=== PATIENT | female | born 1960 | race Caucasian/White ===

== ENCOUNTER 2024-06-16 12:07 | Outpatient (REF) | payer BC, SELFPAY ==
--- OUTSIDE RECORDS SUMMARY | 2024-06-16 12:12 | XMS_ITS | Data Portability ---
Author Organization [facility] Andrea Carroll __[facility] Address [address] [place] [id number] Care Team Providers Care Sheet Folder Name Role Phone ASHOK RUIZ Primary Care Provider ) [phone] Assessment No assessment recorded. Plan of Treatment Reminders Order Date Submit Date Provider Last Modified By Organization Details Last Modified Time Details Appointments None recorded. Lab T4, free, serum 2021 022 [email or web address] [facility] (Main [facility]), [address], [place], [address], 2 09:32:10 T3, reverse, serum 2021 022 JENNIFER [facility] (Main [facility] Location), [address], [address], [place], [address], 2 14:57:52 TSH, serum or plasma 2022 023 JENNIFER [facility] ([facility] Location), [address], [place], [address], 3 00:49:31 T4, free, serum 2022 023 JENNIFER [facility] (Main [facility] Location), [address], [address], [place], [address], 3 00:49:32 T3, free, serum or plasma 2022 023 JENNIFER [facility] (Main Lab Location), [address], [place], [address], 3 00:49:29 vitamin D, 25-hydroxy, total, serum 2022 023 JENNIFER [facility] (Main Lab Location), [address], [address], [place], [address], 3 00:45:14 T3, reverse, serum 2022 023 JENNIFER [facility] (Main [facility] Location), [address], [place], [address], 3 15:28:31 vitamin D, 25-hydroxy, total, serum 2023 024 [facility]ER [facility] [address], [place], [address], 4 18:57:05 Referral None recorded. Procedures None recorded. Surgeries None recorded. Imaging None recorded. Medication Orders montelukast 10 mg tablet 2021 022 JENNIFER [id number], [address] [place], [address], 2 14:11:42 levothyroxi ne 125 mcg tablet 2021 022 JENNIFER [id number], [address] [place], [place] [address], [address], 2 11:58:46 levothyroxi ne 137 mcg tablet 2022 023 JENNIFER [id number], [address] [place], [address], 3 11:42:11 levothyroxi ne 125 mcg tablet 2022 023 JENNIFER [id number], [address] [place], [place] [address], [address], 11:44:56 Patient TargetsNo targets recorded. Patient Instructions Encounter Date Encounter Id Patient Instructions Last Modified By Organization Details Last Modified Time 01/21/2022 [id number] learning about healthy weight jgewin Not available 01/21/2022 19:08:52 05/19/2022 [id number] learning about healthy weight jgewin Not available 05/19/2022 18:59:01 12/21/2022 [id number] learning about healthy weight jgewin Not available 12/21/2022 13:19:46 eating healthy foods: care instructions jgewin Not available 12/21/2022 13:19:46 body mass index: care instructions jgewin Not available 12/21/2022 13:19:46 01/14/2024 [id number] learning about healthy weight jgewin Not available 01/14/2024 13:09:06 body mass index: care instructions jgewin Not available 01/14/2024 13:09:06 eating healthy foods: care instructions jgewin Not available 01/14/2024 13:09:06 Reason for Referral None Reported. Results Created Date Observation Date Name Description Value Unit Range Abnormal Flag Note LastModifiedBy Organization Detail LastModifiedTime 05/14/20 22 05/14/2022 COMPL ETE BLOOD COUNT W/AUT O DIFFE RENTI AL WBC 7.1 x10(3 )/mcL 4.0-10 .0 Not Available [facility] (Main [facility]) [address], [place], [address], 05/14/2022 17:04:36 05/14/20 22 05/14/2022 COMPL ETE BLOOD COUNT W/AUT O DIFFE RENTI AL RBC cnt 4.90 x10(6 )/mcL 3.80-5 .20 Not Available [facility] (Main Lab Location) [address], [place], [address], 05/14/2022 17:04:36 05/14/20 22 05/14/2022 COMPL ETE BLOOD COUNT W/AUT O DIFFE RENTI AL HGB 14.6 gm/dL 11.3-1 5.2 Not Available [facility] (Main Lab Location) [address], [place], [address], 05/14/2022 17:04:36 05/14/20 22 05/14/2022 COMPL ETE BLOOD COUNT W/AUT O DIFFE RENTI AL HCT 44.8 % 33.0-4 5.0 Not Available [facility] (Main Lab Location) [address], [place], [address], 05/14/2022 17:04:36 05/14/20 22 05/14/2022 COMPL ETE BLOOD COUNT W/AUT O DIFFE RENTI AL MCV 91.4 fL 80.0-9 6.0 Not Available [facility] (Main Lab Location) [address], [place], [address], 05/14/2022 17:04:36 05/14/20 22 05/14/2022 COMPL ETE BLOOD COUNT W/AUT O DIFFE RENTI AL MCH 29.8 pg 27.0-3 3.0 Not Available [facility] (Main Lab Location) [address], [place], [address], 05/14/2022 17:04:36 05/14/20 22 05/14/2022 COMPL ETE BLOOD COUNT W/AUT O DIFFE RENTI AL MCHC 32.6 gm/dL 32.0-3 6.0 Not Available [facility] (Main Lab Location) [address], [place], [address], 05/14/2022 17:04:36 05/14/20 22 05/14/2022 COMPL ETE BLOOD COUNT W/AUT O DIFFE RENTI AL RDW 13.1 % 11.0-1 6.0 Not Available [facility] (Main Lab Location) [address], [place], [address], 05/14/2022 17:04:36 05/14/20 22 05/14/2022 COMPL ETE BLOOD COUNT W/AUT O DIFFE TERRI WALSH plt cnt 244 x10(3 )/mcL 150-40 0 Not Available [facility] (Main Lab Location) [address] [facility] [address], [place], [address], 05/14/2022 17:04:36 05/14/20 22 05/14/2022 COMPL ETE BLOOD COUNT W/AUT O DIFFE TERRI WALSH MPV 11.7 fL 6.5-11 .0 high Not Available [facility] (Main Lab Location) [address] [place] [address] [address], [place], [address], 05/14/2022 17:04:36 05/14/20 22 05/14/2022 .AUTO DIFF neutrophils% auto 59.1 % 35.0-7 5.0 Not Available [facility] (Main Lab Location) [address] [place] [address] [address], [place], [address], 05/14/2022 17:04:37 05/14/20 22 05/14/2022 .AUTO DIFF lymphocytes% auto 31.0 % 15.0-5 2.0 Not Available [facility] (Main Lab Location) [address] [place] [address] [address], [place], [address], 05/14/2022 17:04:37 05/14/20 22 05/14/2022 .AUTO DIFF monocytes% auto 7.7 % 0.0-12 .0 Not Available [facility] (Main Lab Location) [address] [place] [address] [address], [place], [address], 05/14/2022 17:04:37 05/14/20 22 05/14/2022 .AUTO DIFF eosinophils% auto 1.4 % 0.0-6. 0 Not Available [facility] (Main Lab Location) [address] [place] [address] [address], [place], [address], 05/14/2022 17:04:37 05/14/20 22 05/14/2022 .AUTO DIFF basophils% auto 0.7 % 0.0-2. 0 Not Available [facility] (Main Lab Location) [address] [place] [address] [address], [place], [address], 05/14/2022 17:04:37 05/14/20 22 05/14/2022 .AUTO DIFF neutrophils# auto 4.22 x10(3 )/mcL 1.67-6 .08 Not Available [facility] (Main Lab Location) [address] [place] [address] [address], [place], [address], 05/14/2022 17:04:37 05/14/20 22 05/14/2022 .AUTO DIFF lymphocytes# auto 2.21 x10(3 )/mcL 0.86-3 .45 Not Available [facility] (Main Lab Location) [address] [place] [address] [address], [place], [address], 05/14/2022 17:04:37 05/14/20 22 05/14/2022 .AUTO DIFF monocytes# auto 0.55 x10(3 )/mcL 0.24-0 .74 Not Available [facility] (Main Lab Location) [address] [place] [address] [address], [place], [address], 05/14/2022 17:04:37 05/14/20 22 05/14/2022 .AUTO DIFF eos# auto 0.10 x10(3 )/mcL 0.00-0 .32 Not Available [facility] (Main Lab Location) [address] [place] [address] [address], [place], [address], 05/14/2022 17:04:37 05/14/20 22 05/14/2022 .AUTO DIFF basophils# auto 0.05 x10(3 )/mcL 0.00-0 .08 Not Available [facility] (Main Lab Location) [address] [place] [address] [address], [place], [address], 05/14/2022 17:04:37 05/14/20 22 05/14/2022 .AUTO DIFF immature granulocytes % auto 0.1 % 0.0-0. 8 Not Available [facility] (Main Lab Location) [address] [place] [address] [address], [place], [address], 05/14/2022 17:04:37 05/14/20 22 05/14/2022 .AUTO DIFF immature granulocytes # auto 0.01 x10(3 )/mcL 0.00-0 .05 Not Available [facility] (Main Lab Location) [address] [place] [address] [address], [place], [address], 05/14/2022 17:04:37 05/14/20 22 05/14/2022 VITAM IN D LEVEL vit D 25OH 55 NG/mL 30-80 Vitam in D inter preta tion: Adult Defic iency <20 ng/mL Insuf ficie ncy 20-29 ng/mL Suffi cienc y 30-10 0 ng/mL Pedia tric Defic iency <15 ng/mL Insuf ficie ncy 15-19 ng/mL Suffi cienc y 20-10 0 ng/mL Not Available [facility] (Main Lab Location) [address] [place] [address] [address], [place], [address], 05/14/2022 18:27:03 05/14/20 22 05/14/2022 TRIIO DOTHY AGATA E 3 FREE T3 free 3.20 pg/mL 2.18-3 .98 Not Available [facility] (Main Lab Location) [address] [place] [address] [address], [place], [address], 05/14/2022 18:27:04 05/14/20 22 05/14/2022 THYRO ID STIMU LATIN G HORMO NE WITH REFLE X TSH 0.749 uIU/m L 0.358- 3.740 Not Available [facility] (Main Lab Location) [address] [place] [address] [address], [place], [address], 05/14/2022 18:27:05 05/14/20 22 05/14/2022 COMPR EHENS RACHID METAB OLIC PANEL WITH REFLE sodium 137 mEq/L 136-14 5 Not Available [facility] (Main Lab Location) [address] [place] [address] [address], [place], [address], 05/14/2022 18:27:17 05/14/20 22 05/14/2022 COMPR EHENS RACHID METAB OLIC PANEL WITH REFLE potassium 4.5 mEq/L 3.5-5. 1 Not Available [facility] (Main Lab Location) [address] [place] [address] [address], [place], [address], 05/14/2022 18:27:17 05/14/20 22 05/14/2022 COMPR EHENS RACHID METAB OLIC PANEL WITH REFLE chloride 104 mEq/L 98-107 Not Available [facility] (Main Lab Location) [address] [place] [address] [address], [place], [address], 05/14/2022 18:27:17 05/14/20 22 05/14/2022 COMPR EHENS RACHID METAB OLIC PANEL WITH REFLE carbon dioxide 25 mEq/L 21-[address] [facility] ([facility]) [address] [place] [address] [address], [place], [address], 05/14/2022 18:27:17 05/14/20 22 05/14/2022 COMPR EHENS RACHID METAB OLIC PANEL WITH REFLE BUN 12 mg/dL 7-18 Not Available [facility] (Main Lab Location) [address] [place] [address] [address], [place], [address], 05/14/2022 18:27:17 05/14/20 22 05/14/2022 COMPR EHENS RACHID METAB OLIC PANEL WITH REFLE creatinine 0.86 mg/dL 0.55-1 .02 Refer ence range for estim ate of GFR(e GFR) =>90 ml/mi n/1.7 3 sqm. eGFR calcu latio n is based on CKD-E PI equat ion. Not Available [facility] (Main Lab Location) [address] [facility] [address], [place], [address], 05/14/2022 18:27:17 05/14/20 22 05/14/2022 COMPR EHENS RACHID METAB OLIC PANEL WITH REFLE eGFR 83.9 no reference range Not Available [facility] (Main Lab Location) [address], [place], [address], 05/14/2022 18:27:17 05/14/20 22 05/14/2022 COMPR EHENS RACHID METAB OLIC PANEL WITH REFLE eGFR non 72.4 no reference range Not Available [facility] (Main Lab Location) [address], [place], [address], 05/14/2022 18:27:17 05/14/20 22 05/14/2022 COMPR EHENS RACHID METAB OLIC PANEL WITH REFLE glucose 94 mg/dL 75-100 Not Available [facility] (Main Lab Location) [address], [place], [address], 05/14/2022 18:27:17 05/14/20 22 05/14/2022 COMPR EHENS RACHID METAB OLIC PANEL WITH REFLE calcium 9.8 mg/dL 8.5-10 .1 Not Available [facility] (Main Lab Location) [address], [place], [address], 05/14/2022 18:27:17 05/14/20 22 05/14/2022 COMPR EHENS RACHID METAB OLIC PANEL WITH REFLE prot total 7.8 gm/dL 6.4-8. 2 Not Available [facility] (Main Lab Location) [address], [place], [address], 05/14/2022 18:27:17 05/14/20 22 05/14/2022 COMPR EHENS RACHID METAB OLIC PANEL WITH REFLE albumin 4.4 gm/dL 3.4-5. 0 Not Available [facility] (Main Lab Location) [address], [place], [address], 05/14/2022 18:27:17 05/14/20 22 05/14/2022 COMPR EHENS RACHID METAB OLIC PANEL WITH REFLE bili total 0.6 mg/dL 0.2-1. 0 Not Available [facility] (Main Lab Location) [address], [place], [address], 05/14/2022 18:27:17 05/14/20 22 05/14/2022 COMPR EHENS RACHID METAB OLIC PANEL WITH REFLE AST 17 unit/ L 15-37 Not Available [facility] (Main Lab Location) [address], [place], [address], 05/14/2022 18:27:17 05/14/20 22 05/14/2022 COMPR EHENS RACHID METAB OLIC PANEL WITH REFLE ALT 34 unit/ L 12-78 Not Available [facility] (Main Lab Location) [address], [place], [address], 05/14/2022 18:27:17 05/14/20 22 05/14/2022 COMPR EHENS RACHID METAB OLIC PANEL WITH REFLE alkaline phosphatase 101 unit/ L 45-117 Not Available [facility] (Main Lab Location) [address], [place], [address], 05/14/2022 18:27:17 05/14/20 22 05/14/2022 COMPR EHENS RACHID METAB OLIC PANEL WITH REFLE globulin 3.4 gm/dL no reference range Not Available [facility] (Main Lab Location) [address], [place], [address], 05/14/2022 18:27:17 05/14/20 22 05/14/2022 COMPR EHENS RACHID METAB OLIC PANEL WITH REFLE albumin/glob ulin ratio 1.3 1.1-1. 8 Not Available [facility] (Main Lab Location) [address], [place], [address], 05/14/2022 18:27:17 05/14/20 22 05/14/2022 COMPR EHENS RACHID METAB OLIC PANEL WITH REFLE Ca corrected 9.5 mg/dL 8.5-10 .1 Not Available [facility] (Main Lab Location) [address] [facility] [address], [place], [address], 05/14/2022 18:27:17 05/14/20 22 05/14/2022 COMPR EHENS RACHID METAB OLIC PANEL WITH REFLE osmol calc 273 no reference range Not Available [facility] (Main Lab Location) [address] [place] [address] [address], [place], [address], 05/14/2022 18:27:17 05/14/20 22 05/14/2022 COMPR EHENS RACHID METAB OLIC PANEL WITH REFLE BUN/crea ratio 14 10-[address] [facility] ([facility]) [address] [place] [address] [address], [place], [address], 05/14/2022 18:27:17 05/14/20 22 05/14/2022 COMPR EHENS RACHID METAB OLIC PANEL WITH REFLE anion gap 8 5-15 Not Available [facility] (Main Lab Location) [address] [place] [address] [address], [place], [address], 05/14/2022 18:27:17 05/14/20 22 05/14/2022 LIPID PANEL WITH REFLE X LDL DIREC T cholesterol 221 mg/dL 0-199 high Isidra stero l: <200 mg/dL sussy able, 200-2 39 mg/dL borde rline high; >/= 240 mg/dL high Not Available [facility] (Main Lab Location) [address] [place] [address] [address], [place], [address], 05/14/2022 18:30:03 05/14/20 22 05/14/2022 LIPID PANEL WITH REFLE X LDL DIREC T triglyceride s 177 mg/dL 0-149 high Not Available [facility] ([facility] Location) [address] [place] [address] [address], [place], [address], 05/14/2022 18:30:03 05/14/20 22 05/14/2022 LIPID PANEL WITH REFLE X LDL DIREC T lipoprotein HDL 46 mg/dL 40-60 HDL goal for women is >50 mg/dL ; HDL goal for men is >40 mg/dL Not Available [facility] (Main Lab Location) [address] [facility] [address], [place], [address], 05/14/2022 18:30:03 05/14/20 22 05/14/2022 LIPID PANEL WITH REFLE X LDL DIREC T LDL calculation 140 mg/dL 0-99 high LDL Isidra stero l: <100 mg/dL optim al; 100-1 29 mg/dL near optim al/ab ove optim al; 130-1 59 mg/dL borde rline high; 60-18 9 mg/dL high; >= 190 mg/dL very high Not Available [facility] (Main Lab Location) [address] [place] [address] [address], [place], [address], 05/14/2022 18:30:03 05/14/20 22 05/14/2022 LIPID PANEL WITH REFLE X LDL DIREC T chol/HDL ratio 4.8 no reference range Total Isidra stero l/HDL Ratio Goal: <5 mg/dL ; Optim um 3.5 mg/dL or less Not Available [facility] (Main Lab Location) [address] [place] [address] [address], [place], [address], 05/14/2022 18:30:03 05/14/20 22 05/14/2022 LIPID PANEL WITH REFLE X LDL DIREC T VLDL 35 mg/dL 2-30 high Not Available [facility] (Main Lab Location) [address] [place] [address] [address], [place], [address], 05/14/2022 18:30:03 05/14/20 22 05/14/2022 LIPID PANEL WITH REFLE X LDL DIREC T non HDL 175 mg/dL no reference range Non-H DL Isidra stero l shoul d not excee d 30 mg/dL beyon d the LDL Isidra stero l goal Not Available [facility] (Main Lab Location) [address] [place] [address] [address], [place], [address], 05/14/2022 18:30:03 08/25/20 22 05/21/2022 FREE THYRO XINE T4 free 1.73 NG/dL 0.76-1 .46 high Not Available [facility] (Main Lab Location) [address] [place] [address] [address], [place], [address], 05/21/2022 15:42:55 05/19/20 22 05/25/2022 TRIIO DOTHY AGATA E 3 REVER SE LC-MS /MS - SE [id number] 33 NG/dL 8-25 high This test was devel oped and its shahida tical perfo rmanc e reymundo cteri stics have been deter mined by [employer] [facility] [place], [place]. It has not been clear ed or appro darrius by the U.S. Food and Drug Admin istra tion. This assay has been valid ated pursu ant to the CLIA regul ation s and is used for clini edi purpo ses. Test Perfo rmed by Sancho Martínez, Tanya reaves s [facility], [address] [facility] , [place], [place] Arash Valle M.D., Ph.D. , [facility]ire[facility] tor of Labor atori es , CLIA [id number] Lab test perfo rmed by: Lab Mnemo freida: [phone] , Not Available [facility] (Main Lab Location) [address] [place] [address] [address], [place], [address], 05/25/2022 14:57:52 12/22/19 23 12/21/2022 VITAM IN D LEVEL vit D 25OH 43 NG/mL 30-80 Vitam in D inter preta tion: Adult Defic iency <20 ng/mL Insuf ficie ncy 20-29 ng/mL Suffi cienc y 30-10 0 ng/mL Pedia tric Defic iency <15 ng/mL Insuf ficie ncy 15-19 ng/mL Suffi cienc y 20-10 0 ng/mL Not Available [facility] (Main Lab Location) [address] [facility] [address], [place], [address], 12/22/2022 00:45:14 12/22/1912/21/2022 TRIIO DOTHY AGATA E 3 FREE T3 free 2.38 pg/mL 2.18-3 .98 Not Available [facility] (Main Lab Location) [address] [facility] [address], [place], [address], 12/22/2022 00:49:29 12/22/1912/21/2022 THYRO ID STIMU LATIN G HORMO NE TSH 4.470 uIU/m L 0.358- 3.740 high Not Available [facility] (Main Lab Location) [address] [place] [address] [address], [place], [address], 12/22/2022 00:49:30 12/22/1912/21/2022 FREE THYRO XINE T4 free 1.29 NG/dL 0.76-1 .46 Not Available [facility] (Main Lab Location) [address] [place] [address] [address], [place], [address], 12/22/2022 00:49:32 12/22/1912/27/2022 TRIIO DOTHY AGATA E 3 REVER SE LC-MS /MS - SE [id number] 20 NG/dL 8-25 no reference range This test was devel oped and its shahida tical perfo rmanc e reymundo cteri stics have been deter mined by [employer] Diagn [facility]stic [facility] [place]. It has not been clear ed or appro darrius by the U.S. Food and Drug Admin istra tion. This assay has been valid ated pursu ant to the CLIA regul ation s and is used for clini edi purpo ses. Test Perfo rmed by Sancho Martínez, Tanya Diagn ostic s [facility] [place], [address] [employer] [facility] , [place], [place] Arash Valle M.D., Ph.D. , Direc tor of Labor atori es , CLIA [id number] Lab test perfo rmed by: Lab Mnemo freida: [phone] , Not Available [facility] (Main Lab Location) [address], [place], [address], 12/27/2022 15:28:31 09/03/20 23 09/03/2023 COMPL ETE BLOOD COUNT W/AUT O DIFFE RENTI AL WBC 8.0 x10(3 )/mcL 4.0-10 .0 Not Available [facility] (Main Lab Location) [address], [place], [address], 09/03/2023 17:34:11 09/03/20 23 09/03/2023 COMPL ETE BLOOD COUNT W/AUT O DIFFE RENTI AL RBC cnt 5.09 x10(6 )/mcL 3.80-5 .20 Not Available [facility] (Main Lab Location) [address], [place], [address], 09/03/2023 17:34:11 09/03/20 23 09/03/2023 COMPL ETE BLOOD COUNT W/AUT O DIFFE RENTI AL HGB 15.0 gm/dL 11.3-1 5.2 Not Available [facility] (Main Lab Location) [address], [place], [address], 09/03/2023 17:34:11 09/03/20 23 09/03/2023 COMPL ETE BLOOD COUNT W/AUT O DIFFE RENTI AL HCT 46.8 % 33.0-4 5.0 high Not Available [facility] (Main Lab Location) [address], [place], [address], 09/03/2023 17:34:11 09/03/20 23 09/03/2023 COMPL ETE BLOOD COUNT W/AUT O DIFFE RENTI AL MCV 91.9 fL 80.0-9 6.0 Not Available [facility] (Main Lab Location) [address], [place], [address], 09/03/2023 17:34:11 09/03/20 23 09/03/2023 COMPL ETE BLOOD COUNT W/AUT O DIFFE RENTI AL MCH 29.5 pg 27.0-3 3.0 Not Available [facility] (Main Lab Location) [address], [place], [address], 09/03/2023 17:34:11 09/03/20 23 09/03/2023 COMPL ETE BLOOD COUNT W/AUT O DIFFE RENCHAPINCITO AL MCHC 32.1 gm/dL 32.0-3 6.0 Not Available [facility] (Main Lab Location) [address], [place], [address], 09/03/2023 17:34:11 09/03/20 23 09/03/2023 COMPL ETE BLOOD COUNT W/AUT O DIFFE TERRI AL RDW 13.5 % 11.0-1 6.0 Not Available [facility] (Main Lab Location) [address] [place], [place] [address], [place], [address], 09/03/2023 17:34:11 09/03/20 23 09/03/2023 COMPL ETE BLOOD COUNT W/AUT O DIFFE RENTI AL plt cnt 292 x10(3 )/mcL 150-40 0 Not Available [facility] (Main Lab Location) [address] [place], [place] [address], [place], [address], 09/03/2023 17:34:11 09/03/20 23 09/03/2023 COMPL ETE BLOOD COUNT W/AUT O DIFFE TERRI AL MPV 11.0 fL 6.5-11 .0 Not Available [facility] (Main Lab Location) [address], [place], [address], 09/03/2023 17:34:11 09/03/20 23 09/03/2023 .AUTO DIFF neutrophils% auto 65.3 % 35.0-7 5.0 Not Available [facility] (Main Lab Location) [address], [place], [address], 09/03/2023 17:34:13 09/03/20 23 09/03/2023 .AUTO DIFF lymphocytes% auto 25.9 % 15.0-5 2.0 Not Available [facility] (Main Lab Location) [address], [place], [address], 09/03/2023 17:34:13 09/03/20 23 09/03/2023 .AUTO DIFF monocytes% auto 6.3 % 0.0-12 .0 Not Available [facility] (Main Lab Location) [address], [place], [address], 09/03/2023 17:34:13 09/03/20 23 09/03/2023 .AUTO DIFF eosinophils% auto 1.5 % 0.0-6. 0 Not Available [facility] (Main Lab Location) [address] [place], [place] [address]harsha Fanel[address] [facility] [address], [place], [address], 09/03/2023 17:34:13 09/03/20 23 09/03/2023 .AUTO DIFF basophils% auto 0.6 % 0.0-2. 0 Not Available [facility] (Main Lab Location) [address] [place], [place] [address], [place], [address], 09/03/2023 17:34:13 09/03/20 23 09/03/2023 .AUTO DIFF neutrophils# auto 5.20 x10(3 )/mcL 1.67-6 .08 Not Available [facility] (Main Lab Location) [address] [place], [place] [address], [place], [address], 09/03/2023 17:34:13 09/03/20 23 09/03/2023 .AUTO DIFF lymphocytes# auto 2.06 x10(3 )/mcL 0.86-3 .45 Not Available [facility] (Main Lab Location) [address] [place] [address] [facility] [address] [place], [address], 09/03/2023 17:34:13 12/15/20 23 09/03/2023 .AUTO DIFF monocytes# auto 0.50 x10(3 )/mcL 0.24-0 .74 Not Available [facility] (Main Lab Location) [address] [facility] [address], [place], [address], 09/03/2023 17:34:13 09/03/20 23 09/03/2023 .AUTO DIFF eos# auto 0.12 x10(3 )/mcL 0.00-0 .32 Not Available [facility] (Main Lab Location) [address] [facility] [address], [place], [address], 09/03/2023 17:34:13 09/03/20 23 09/03/2023 .AUTO DIFF basophils# auto 0.05 x10(3 )/mcL 0.00-0 .08 Not Available [facility] (Main Lab Location) [address] [place] [address] [address], [place], [address], 09/03/2023 17:34:13 09/03/20 23 09/03/2023 .AUTO DIFF immature granulocytes % auto 0.4 % 0.0-0. 8 Not Available [facility] (Main Lab Location) [address] [place] [address] [address], [place], [address], 09/03/2023 17:34:13 09/03/20 23 09/03/2023 .AUTO DIFF immature granulocytes # auto 0.03 x10(3 )/mcL 0.00-0 .05 Not Available [facility] (Main Lab Location) [address] [place] [address] [address], [place], [address], 09/03/2023 17:34:13 09/03/20 23 09/03/2023 LIPID PANEL WITH REFLE X LDL DIREC T cholesterol 250 mg/dL 0-199 high Isidra stero l: <200 mg/dL sussy able, 200-2 39 mg/dL borde rline high; >/= 240 mg/dL high Not Available [facility] (Main Lab Location) [address] [place] [address] [address], [place], [address], 09/03/2023 18:43:36 09/03/20 23 09/03/2023 LIPID PANEL WITH REFLE X LDL DIREC T triglyceride s 176 mg/dL 0-149 high Not Available [facility] (Main [facility] Location) [address] [place] [address] [address], [place], [address], 09/03/2023 18:43:36 09/03/20 23 09/03/2023 LIPID PANEL WITH REFLE X LDL DIREC T lipoprotein HDL 53 mg/dL 40-60 HDL goal for women is >50 mg/dL ; HDL goal for men is >40 mg/dL Not Available [facility] (Main [facility] Location) [address] [facility] [address], [place], [address], 09/03/2023 18:43:36 09/03/20 23 09/03/2023 LIPID PANEL WITH REFLE X LDL DIREC T LDL calculation 162 mg/dL 0-99 high LDL Isidra stero l: <100 mg/dL optim al; 100-1 29 mg/dL near optim al/ab ove optim al; 130-1 59 mg/dL borde rline high; 60-18 9 mg/dL high; >= 190 mg/dL very high Not Available [facility] (Main Lab Location) [address] [place] [address] [address] [facility] [address], [place], [address], 09/03/2023 18:43:36 09/03/20 23 09/03/2023 LIPID PANEL WITH REFLE X LDL DIREC T chol/HDL ratio 4.7 no reference range Total Isidra stero l/HDL Ratio Goal: <5 mg/dL ; Optim um 3.5 mg/dL or less Not Available [facility] (Main Lab Location) [address] [place] [address] [facility] [address], [place], [address], 09/03/2023 18:43:36 09/03/20 23 09/03/2023 LIPID PANEL WITH REFLE X LDL DIREC T VLDL 35 mg/dL 2-30 high Not Available [facility] (Main Lab Location) [address] [place] [address] [facility] [address], [place], [address], 09/03/2023 18:43:36 09/03/20 23 09/03/2023 LIPID PANEL WITH REFLE X LDL DIREC T non HDL 197 mg/dL no reference range Non-H DL Isidra stero l shoul d not excee d 30 mg/dL beyon d the LDL Isidra stero l goal Not Available [facility] (Main Lab Location) [address], [place], [address], 09/03/2023 18:43:36 09/03/20 23 09/03/2023 COMPR EHENS RACHID METAB OLIC PROFI LE eGFR 78 mL/mi n/1.7 3_m2 >=90 low CKD is defin ed by the prese nce of glome rular filtr ation rate (GFR) <60 mL for >3 month s and/o r evide nce of kidne y damag e (eg, struc tural abnor malit ies, histo logic abnor malit ies, album inuri a, urina ry sedim ent abnor malit ies, renal tubul ar disor ders, and/o r histo ry of kidne y trans plant ation ) for >3mon ths. This table provi isamar inter preta tion of speci fic eGFR value s. Creat inine measu remen ts, and there fore eGFR calcu latio ns, are affec [place] by very high or very low muscl e mass, muscl e injur y, a diet very high in meat, hepat ic cirrh osis, certa in drugs , etc. Stage s of CKD: Stage Descr iptio n GFR mL/mi n 1 Kidne y damag e with carrie l or incre ased GFR 90 2 Kidne y damag e with mild decre ase in GFR 60 to 89 3 Moder ate decre ase in GFR 30 to 59 4 Sever e decre ase in GFR 15 to 29 5 Kidne y failu re <15 (or dialy sis) Note: GFR Carrie l range >60, equat ion not valid ated for ages <18 and >70 and pregn ant women . Not Available [facility] (Main Lab Location) [address], [place], [address], 09/03/2023 18:44:15 09/03/20 23 09/03/2023 COMPR EHENS RACHID METAB OLIC PROFI LE glucose 91 mg/dL 75-100 Not Available [facility] (Main Lab Location) [address], [place], [address], 09/03/2023 18:44:15 09/03/20 23 09/03/2023 COMPR EHENS RACHID METAB OLIC PROFI LE BUN 16 mg/dL 7-18 Not Available [facility] (Main Lab Location) [address], [place], [address], 09/03/2023 18:44:15 09/03/20 23 09/03/2023 COMPR EHENS RACHID METAB OLIC PROFI LE creatinine 0.84 mg/dL 0.55-1 .02 Refer ence range for estim ate of GFR(e GFR) =>90 ml/mi n/1.7 3 sqm. eGFR calcu latio n is based on CKD-E PI equat ion. Not Available [facility] (Main [facility] Location) [address], [place], [address], 09/03/2023 18:44:15 09/03/20 23 09/03/2023 COMPR EHENS RACHID METAB OLIC PROFI LE BUN/crea ratio 19 10-[address] [facility]) [address], [place], [address], 09/03/2023 18:44:15 09/03/20 23 09/03/2023 COMPR EHENS RACHID METAB OLIC PROFI LE sodium 137 mEq/L 136-14 5 Not Available [facility] (Main [facility] Location) [address], [place], [address], 09/03/2023 18:44:15 09/03/20 23 09/03/2023 COMPR EHENS RACHID METAB OLIC PROFI LE potassium 4.0 mEq/L 3.5-5. 1 Not Available [facility] (Main Lab Location) [address] [place] [address] [address], [place], [address], 09/03/2023 18:44:15 09/03/20 23 09/03/2023 COMPR EHENS RACHID METAB OLIC PROFI LE chloride 105 mEq/L 98-111 Not Available [facility] (Main Lab Location) [address] [place] [address] [address], [place], [address], 09/03/2023 18:44:15 09/03/20 23 09/03/2023 COMPR EHENS RACHID METAB OLIC PROFI LE carbon dioxide 26 mEq/L 21-[address] [facility] ([facility]) [address] [place] [address] [address], [place], [address], 09/03/2023 18:44:15 09/03/20 23 09/03/2023 COMPR EHENS RACHID METAB OLIC PROFI LE calcium 9.1 mg/dL 8.5-10 .1 Not Available [facility] ([facility] Location) [address] [place] [address] [address], [place], [address], 09/03/2023 18:44:15 09/03/20 23 09/03/2023 COMPR EHENS RACHID METAB OLIC PROFI LE Ca corrected 9.1 mg/dL 8.5-10 .1 Not Available [facility] (Main Lab Location) [address] [place] [address] [address], [place], [address], 09/03/2023 18:44:15 09/03/20 23 09/03/2023 COMPR EHENS RACHID METAB OLIC PROFI LE prot total 7.5 gm/dL 6.4-8. 2 Not Available [facility] (Main [facility] Location) [address] [place], [place] [address] [address], [place], [address], 09/03/2023 18:44:15 09/03/20 23 09/03/2023 COMPR EHENS RACHID METAB OLIC PROFI LE albumin 4.0 gm/dL 3.4-5. 0 Not Available [facility] ([facility] Location) [address] [place] [address] [facility], [place], [address], 09/03/2023 18:44:15 09/03/20 23 09/03/2023 COMPR EHENS RACHID METAB OLIC PROFI LE globulin 3.5 gm/dL no reference range Not Available [facility] ([facility] Location) [address] [place], [place] [address], [place], [address], 09/03/2023 18:44:15 09/03/20 23 09/03/2023 COMPR EHENS RACHID METAB OLIC PROFI LE albumin/glob ulin ratio 1.1 1.1-1. 8 Not Available [facility] (Main Lab Location) [address] [place] [address] [facility], [place], [address], 09/03/2023 18:44:15 09/03/20 23 09/03/2023 COMPR EHENS RACHID METAB OLIC PROFI LE anion gap 6 5-15 Not Available [facility] ([facility] Location) [address] [place] [address] [facility] [address], [place], [address], 09/03/2023 18:44:15 09/03/20 23 09/03/2023 COMPR EHENS RACHID METAB OLIC PROFI LE alkaline phosphatase 94 unit/ L 45-117 Not Available [facility] (Main Lab Location) [address] [place] [address] [address], [place], [address], 09/03/2023 18:44:15 09/03/20 23 09/03/2023 COMPR EHENS RACHID METAB OLIC PROFI LE AST 22 unit/ L 15-37 Not Available [facility] (Main Lab Location) [address] [place] [address] [address], [place], [address], 09/03/2023 18:44:15 09/03/20 23 09/03/2023 COMPR EHENS RACHID METAB OLIC PROFI LE ALT 26 unit/ L 12-78 Not Available [facility] (Main Lab Location) [address] [place] [address] [address], [place], [address], 09/03/2023 18:44:15 09/03/20 23 09/03/2023 COMPR EHENS RACHID METAB OLIC PROFI LE bili total 0.4 mg/dL 0.2-1. 0 Not Available [facility] (Main Lab Location) [address] [facility] [address], [place], [address], 09/03/2023 18:44:15 09/03/20 23 09/03/2023 COMPR EHENS RACHID METAB OLIC PROFI LE osmol calc 275 no reference range Not Available [facility] (Main [facility] Location) [address] [place] [address] [address], [place], [address], 09/03/2023 18:44:15 09/03/20 23 09/03/2023 THYRO ID STIMU LATIN G HORMO NE TSH 6.860 uIU/m L 0.358- 3.740 high Not Available [facility] (Main Lab Location) [address] [place] [address] [address], [place], [address], 09/03/2023 18:44:16 09/03/2009/03/2023 HEMOG LOBIN A1C HGB A1C 5.1 % 4.0-5. 6 <5.7% : Carrie l/Non -Diab etic 5.7 - 6.4%: Pre-D iabet ic >6.4% : Diabe tic Not Available [facility] (Main [facility] Location) [address] [place] [address] [address], [place], [address], 09/04/2023 00:36:52 09/03/20 23 09/03/2023 HEMOG LOBIN A1C HGB A1C mean bld glucose 104 no reference range Not Available [facility] (Main Lab Location) [address] [place] [address] [address], [place], [address], 09/04/2023 00:36:52 09/03/20 23 09/06/2023 TRIIO DOTHY AGATA E 3 FREE T3 free 2.34 pg/mL 2.18-3 .98 Not Available [facility] (Main Lab Location) [address] [facility] [address], [place], [address], 09/06/2023 17:20:23 09/03/20 23 09/06/2023 FREE THYRO XINE T4 free 1.33 NG/dL 0.76-1 .46 Not Available [facility] (Main Lab Location) [address] [place] [address] [address], [place], [address], 09/06/2023 17:20:24 01/11/20 24 01/11/2024 TRIIO DOTHY AGATA E 3 FREE T3 free 2.68 pg/mL 2.18-3 .98 Not Available [facility] (Main Lab Location) [address] [place] [address] [address], [place], [address], 01/11/2024 20:44:11 01/11/20 24 01/11/2024 THYRO ID STIMU LATIN G HORMO NE TSH 3.300 uIU/m L 0.358- 3.740 Not Available [facility] (Main Lab Location) [address] [place] [address] [address], [place], [address], 01/11/2024 20:45:44 01/11/20 24 01/11/2024 FREE THYRO XINE T4 free 1.42 NG/dL 0.76-1 .46 Not Available [facility] (Main Lab Location) [address] [place] [address] [address], [place], [address], 01/11/2024 20:45:45 01/11/20 24 01/15/2024 TRIIO DOTHY AGATA E 3 REVER SE LC-MS /MS - SE [id number] 21 NG/dL 8-25 no reference range This test was devel oped and its shahida tical perfo rmanc e reymundo cteri stics have been deter mined by [facility] [place], [place]. It has not been clear ed or appro darrius by the U.S. Food and Drug Admin istra tion. This assay has been valid ated pursu ant to the CLIA regul ation s and is used for clini edi purpo ses. Test Perfo rmed by Sancho Martínez, [facility], [address] [facility] , [facility], [place] Arash Valle M.D., Ph.D. , [facility] atori es [phone], CLIA [id number] Lab test perfo rmed by: Lab Mnemo freida: [id number] [phone] , Not Available [facility] (Main Lab Location) [address], [place], [address], 01/15/2024 15:42:02 01/14/20 24 01/14/2024 VITAM IN D LEVEL vit D 25OH 41 NG/mL 30-80 Vitam in D inter preta tion: Adult Defic iency <20 ng/mL Insuf ficie ncy 20-29 ng/mL Suffi cienc y 30-10 0 ng/mL Pedia tric Defic iency <15 ng/mL Insuf ficie ncy 15-19 ng/mL Suffi cienc y 20-10 0 ng/mL Not Available [facility] (Main Lab Location) [address], [place], [address], 01/14/2024 18:57:05 05/25/20 24 05/25/2024 COMPL ETE BLOOD COUNT W/AUT O DIFFE RENTI AL WBC 7.7 x10(3 )/mcL 4.0-10 .0 Not Available [facility] (Main Lab Location) [address], [place], [address], 05/25/2024 22:04:32 05/25/20 24 05/25/2024 COMPL ETE BLOOD COUNT W/AUT O DIFFE RENTI AL RBC cnt 4.99 x10(6 )/mcL 3.80-5 .20 Not Available [facility] (Main Lab Location) [address], [place], [address], 05/25/2024 22:04:32 05/25/20 24 05/25/2024 COMPL ETE BLOOD COUNT W/AUT O DIFFE RENTI AL HGB 14.8 gm/dL 11.3-1 5.2 Not Available [facility] (Main Lab Location) [address], [place], [address], 05/25/2024 22:04:32 05/25/20 24 05/25/2024 COMPL ETE BLOOD COUNT W/AUT O DIFFE RENTI AL HCT 46.1 % 33.0-4 5.0 high Not Available [facility] (Main Lab Location) [address], [place], [address], 05/25/2024 22:04:32 05/25/20 24 05/25/2024 COMPL ETE BLOOD COUNT W/AUT O DIFFE RENTI AL MCV 92.4 fL 80.0-9 6.0 Not Available [facility] (Main [facility] Location) [address], [place], [address], 05/25/2024 22:04:32 05/25/20 24 05/25/2024 COMPL ETE BLOOD COUNT W/AUT O DIFFE RENTI AL MCH 29.7 pg 27.0-3 3.0 Not Available [facility] (Main [facility] Location) [address], [place], [address], 05/25/2024 22:04:32 05/25/20 24 05/25/2024 COMPL ETE BLOOD COUNT W/AUT O DIFFE RENTI AL MCHC 32.1 gm/dL 32.0-3 6.0 Not Available [facility] (Main [facility] Location) [address], [place], [address], 05/25/2024 22:04:32 05/25/20 24 05/25/2024 COMPL ETE BLOOD COUNT W/AUT O DIFFE RENTI AL RDW 13.4 % 11.0-1 6.0 Not Available [facility] (Main [facility] Location) [address], [place], [address], 05/25/2024 22:04:32 05/25/20 24 05/25/2024 COMPL ETE BLOOD COUNT W/AUT O DIFFE TERRI WALSH plt cnt 277 x10(3 )/mcL 150-40 0 Not Available [facility] (Main Lab Location) [address], [place], [address], 05/25/2024 22:04:32 05/25/20 24 05/25/2024 COMPL ETE BLOOD COUNT W/AUT O DIFFE TERRI WALSH MPV 11.2 fL 6.5-11 .0 high Not Available [facility] (Main Lab Location) [address], [place], [address], 05/25/2024 22:04:32 05/25/20 24 05/25/2024 .AUTO DIFF neutrophils% auto 62.4 % 35.0-7 5.0 Not Available [facility] (Main Lab Location) [address], [place], [address], 05/25/2024 22:04:34 05/25/20 24 05/25/2024 .AUTO DIFF lymphocytes% auto 27.2 % 15.0-5 2.0 Not Available [facility] (Main Lab Location) [address] [place], [place] [address], [place], [address], 05/25/2024 22:04:34 05/25/20 24 05/25/2024 .AUTO DIFF monocytes% auto 7.0 % 0.0-12 .0 Not Available [facility] (Main Lab Location) [address], [place], [address], 05/25/2024 22:04:34 05/25/20 24 05/25/2024 .AUTO DIFF eosinophils% auto 2.2 % 0.0-6. 0 Not Available [facility] (Main Lab Location) [facility] [address], [place], [address], 05/25/2024 22:04:34 05/25/20 24 05/25/2024 .AUTO DIFF basophils% auto 0.8 % 0.0-2. 0 Not Available [facility] (Main Lab Location) [address] [place] [address] [address], [place], [address], 05/25/2024 22:04:34 05/25/20 24 05/25/2024 .AUTO DIFF neutrophils# auto 4.78 x10(3 )/mcL 1.67-6 .08 Not Available [facility] (Main Lab Location) [address] [place] [address] [address], [place], [address], 05/25/2024 22:04:34 05/25/20 24 05/25/2024 .AUTO DIFF lymphocytes# auto 2.09 x10(3 )/mcL 0.86-3 .45 Not Available [facility] (Main Lab Location) [address] [place] [address] [address], [place], [address], 05/25/2024 22:04:34 05/25/20 24 05/25/2024 .AUTO DIFF monocytes# auto 0.54 x10(3 )/mcL 0.24-0 .74 Not Available [facility] (Main Lab Location) [address] [place] [address] [address], [place], [address], 05/25/2024 22:04:34 05/25/20 24 05/25/2024 .AUTO DIFF eos# auto 0.17 x10(3 )/mcL 0.00-0 .32 Not Available [facility] (Main Lab Location) [address] [place] [address] [address], [place], [address], 05/25/2024 22:04:34 05/25/20 24 05/25/2024 .AUTO DIFF basophils# auto 0.06 x10(3 )/mcL 0.00-0 .08 Not Available [facility] (Main Lab Location) [address] [place] [address] [address], [place], [address], 05/25/2024 22:04:34 05/25/20 24 05/25/2024 .AUTO DIFF immature granulocytes % auto 0.4 % 0.0-0. 8 Not Available [facility] (Main Lab Location) [address] [facility] [address], [place], [address], 05/25/2024 22:04:34 05/25/20 24 05/25/2024 .AUTO DIFF immature granulocytes # auto 0.03 x10(3 )/mcL 0.00-0 .05 Not Available [facility] (Main Lab Location) [address] [facility] [address], [place], [address], 05/25/2024 22:04:34 05/25/20 24 05/25/2024 VITAM IN D LEVEL vit D 25OH 54 NG/mL 30-80 Vitam in D inter preta tion: Adult Defic iency <20 ng/mL Insuf ficie ncy 20-29 ng/mL Suffi cienc y 30-10 0 ng/mL Pedia tric Defic iency <15 ng/mL Insuf ficie ncy 15-19 ng/mL Suffi cienc y 20-10 0 ng/mL Not Available [facility] (Main Lab Location) [address] [place] [address] [address], [place], [address], 05/25/2024 22:17:30 05/25/20 24 05/25/2024 COMPR EHENS RACHID METAB OLIC PROFI LE eGFR 83 mL/mi n/1.7 3_m2 >=90 low CKD is defin ed by the prese nce of glome rular filtr ation rate (GFR) <60 mL for >3 month s and/o r evide nce of kidne y damag e (eg, struc tural abnor malit ies, histo logic abnor malit ies, album inuri a, urina ry sedim ent abnor malit ies, renal tubul ar disor ders, and/o r histo ry of kidne y trans plant ation ) for >3mon ths. This table provi isamar inter preta tion of speci fic eGFR value s. Creat inine measu remen ts, and there fore eGFR calcu latio ns, are affec [place] by very high or very low muscl e mass, muscl e injur y, a diet very high in meat, hepat ic cirrh osis, certa in drugs , etc. Stage s of CKD: Stage Descr iptio n GFR mL/mi n 1 Kidne y damag e with carrie l or incre ased GFR 90 2 Kidne y damag e with mild decre ase in GFR 60 to 89 3 Moder ate decre ase in GFR 30 to 59 4 Sever e decre ase in GFR 15 to 29 5 Kidne y failu re <15 (or dialy sis) Note: GFR Carrie l range >60, equat ion not valid ated for ages <18 and >70 and pregn ant women . Not Available [facility] (Main Lab Location) [address] [place] [address] [address], [place], [address], 05/25/2024 22:17:36 05/25/20 24 05/25/2024 COMPR EHENS RACHID METAB OLIC PROFI LE glucose 97 mg/dL 75-100 Not Available [facility] (Main Lab Location) [address], [place], [address], 05/25/2024 22:17:36 05/25/20 24 05/25/2024 COMPR EHENS RACHID METAB OLIC PROFI LE BUN 16 mg/dL 7-18 Not Available [facility] (Main Lab Location) [address] [place] [address] [address], [place], [address], 05/25/2024 22:17:36 05/25/20 24 05/25/2024 COMPR EHENS RACHID METAB OLIC PROFI LE creatinine 0.79 mg/dL 0.55-1 .02 Refer ence range for estim ate of GFR(e GFR) =>90 ml/mi n/1.7 3 sqm. eGFR calcu latio n is based on CKD-E PI equat ion. Not Available [facility] (Main [facility] Location) [address], [place], [address], 05/25/2024 22:17:36 05/25/20 24 05/25/2024 COMPR EHENS RACHID METAB OLIC PROFI LE BUN/crea ratio 20 10-[address] [facility] ([facility]) [address], [place], [address], 05/25/2024 22:17:36 05/25/20 24 05/25/2024 COMPR EHENS RACHID METAB OLIC PROFI LE sodium 137 mEq/L 134-14 4 Not Available [facility] (Main Lab Location) [address], [place], [address], 05/25/2024 22:17:36 05/25/20 24 05/25/2024 COMPR EHENS RACHID METAB OLIC PROFI LE potassium 4.5 mEq/L 3.5-5. 1 Not Available [facility] (Main [facility] Location) [address], [place], [address], 05/25/2024 22:17:36 05/25/20 24 05/25/2024 COMPR EHENS RACHID METAB OLIC PROFI LE chloride 105 mEq/L 98-111 Not Available [facility] (Main Lab Location) [address], [place], [address], 05/25/2024 22:17:36 05/25/20 24 05/25/2024 COMPR EHENS RACHID METAB OLIC PROFI LE carbon dioxide 23 mEq/L 21-32 Not Available [facility] ([facility] Location) [address], [place], [address], 05/25/2024 22:17:36 05/25/20 24 05/25/2024 COMPR EHENS RACHID METAB OLIC PROFI LE calcium 9.6 mg/dL 8.5-10 .1 Not Available [facility] (Main [facility] Location) [address], [place], [address], 05/25/2024 22:17:36 05/25/20 24 05/25/2024 COMPR EHENS RACHID METAB OLIC PROFI LE Ca corrected 9.6 mg/dL 8.5-10 .1 Not Available [facility] (Main Lab Location) [address], [place], [address], 05/25/2024 22:17:36 05/25/20 24 05/25/2024 COMPR EHENS RACHID METAB OLIC PROFI LE prot total 7.7 gm/dL 6.4-8. 2 Not Available [facility] (Main Lab Location) [address] [place], [place] [address], [place], [address], 05/25/2024 22:17:36 05/25/20 24 05/25/2024 COMPR EHENS RACHID METAB OLIC PROFI LE albumin 4.0 gm/dL 3.4-5. 0 Not Available [facility] (Main Lab Location) [address] [place], [place] [address], [place], [address], 05/25/2024 22:17:36 05/25/20 24 05/25/2024 COMPR EHENS RACHID METAB OLIC PROFI LE globulin 3.7 gm/dL no reference range Not Available [facility] (Main Lab Location) [address] [place], [place] [address], [place], [address], 05/25/2024 22:17:36 05/25/20 24 05/25/2024 COMPR EHENS RACHID METAB OLIC PROFI LE albumin/glob ulin ratio 1.1 1.1-1. 8 Not Available [facility] (Main Lab Location) [address] [place], [place] [address], [place], [address], 05/25/2024 22:17:36 05/25/20 24 05/25/2024 COMPR EHENS RACHID METAB OLIC PROFI LE anion gap 9 2-12 Not Available [facility] (Main Lab Location) [address] [place], [place] [address], [place], [address], 05/25/2024 22:17:36 05/25/20 24 05/25/2024 COMPR EHENS RACHID METAB OLIC PROFI LE alkaline phosphatase 94 unit/ L 45-117 Not Available [facility] (Main Lab Location) [address] [place] [address] [address], [place], [address], 05/25/2024 22:17:36 05/25/20 24 05/25/2024 COMPR EHENS RACHID METAB OLIC PROFI LE AST 15 unit/ L 15-37 Not Available [facility] (Main Lab Location) [address] [place] [address] [address], [place], [address], 05/25/2024 22:17:36 05/25/20 24 05/25/2024 COMPR EHENS RACHID METAB OLIC PROFI LE ALT 29 unit/ L 12-78 Not Available [facility] (Main Lab Location) [address] [place] [address] [address], [place], [address], 05/25/2024 22:17:36 05/25/20 24 05/25/2024 COMPR EHENS RACHID METAB OLIC PROFI LE bili total 0.4 mg/dL 0.2-1. 0 Not Available [facility] (Main Lab Location) [address] [place] [address] [address], [place], [address], 05/25/2024 22:17:36 05/25/20 24 05/25/2024 COMPR EHENS RACHID METAB OLIC PROFI LE osmol calc 275 no reference range Not Available [facility] (Main Lab Location) [address] [place] [address] [address], [place], [address], 05/25/2024 22:17:36 05/25/20 24 05/25/2024 THYRO ID STIMU LATIN G HORMO NE WITH REFLE X TSH 1.400 uIU/m L 0.358- 3.740 Not Available [facility] (Main Lab Location) [address] [place] [address] [address], [place], [address], 05/25/2024 22:30:21 05/25/20 24 05/25/2024 LIPID PANEL WITH REFLE X LDL DIREC T cholesterol 261 mg/dL 0-199 high Isidra stero l: <200 mg/dL sussy able, 200-2 39 mg/dL borde rline high; >/= 240 mg/dL high Not Available [facility] (Main Lab Location) [address] [facility] [address], [place], [address], 05/25/2024 22:30:22 05/25/20 24 05/25/2024 LIPID PANEL WITH REFLE X LDL DIREC T triglyceride s 150 mg/dL 0-149 high Not Available [facility] ([facility] Location) [address] [place] [address] [address], [place], [address], 05/25/2024 22:30:22 05/25/20 24 05/25/2024 LIPID PANEL WITH REFLE X LDL DIREC T lipoprotein HDL 56 mg/dL 40-60 HDL goal for women is >50 mg/dL ; HDL goal for men is >40 mg/dL Not Available [facility] (Main Lab Location) [address] [place] [address] [address], [place], [address], 05/25/2024 22:30:22 05/25/20 24 05/25/2024 LIPID PANEL WITH REFLE X LDL DIREC T LDL calculation 175 mg/dL 0-99 high LDL Isidra stero l: <100 mg/dL optim al; 100-1 29 mg/dL near optim al/ab ove optim al; 130-1 59 mg/dL borde rline high; 60-18 9 mg/dL high; >= 190 mg/dL very high Not Available [facility] (Main Lab Location) [address] [place] [address] [address], [place], [address], 05/25/2024 22:30:22 05/25/20 24 05/25/2024 LIPID PANEL WITH REFLE X LDL DIREC T chol/HDL ratio 4.7 no reference range Total Isidra stero l/HDL Ratio Goal: <5 mg/dL ; Optim um 3.5 mg/dL or less Not Available [facility] (Main Lab Location) [address] [place] [address] [address], [place], [address], 05/25/2024 22:30:22 05/25/20 24 05/25/2024 LIPID PANEL WITH REFLE X LDL DIREC T VLDL 30 mg/dL 2-30 Not Available [facility] (Main Lab Location) [address] [place] [address] [address], [place], [address], 05/25/2024 22:30:22 05/25/20 24 05/25/2024 LIPID PANEL WITH REFLE X LDL DIREC T non HDL 205 mg/dL no reference range Non-H DL Isidra stero l shoul d not excee d 30 mg/dL beyon d the LDL Isidra stero l goal Not Available [facility] (Main Lab Location) [address] [place] [address] [address], [place], [address], 05/25/2024 22:30:22 05/29/20 24 05/29/2024 TRIIO DOTHY AGATA E 3 FREE T3 free 2.76 pg/mL 2.18-3 .98 Not Available [facility] (Main Lab Location) [address] [place] [address] [address], [place], [address], 05/29/2024 17:02:58 05/29/20 24 05/29/2024 FREE THYRO XINE T4 free 1.45 NG/dL 0.76-1 .46 Not Available [facility] (Main Lab Location) [address] [place] [address] [address], [place], [address], 05/29/2024 17:03:00 05/29/20 24 06/13/2024 TRIIO DOTHY AGATA E 3 REVER SE LC-MS /MS - SE [id number] NG/dL 8-25 no reference range This test was devel oped and its shahida tical perfo rmanc e reymundo cteri stics have been deter mined by [facility] jean paul Kingsley [place], [place]. It has not been clear ed or appro darrius by the U.[place]. Food and Drug Admin istra tion. This assay has been valid ated pursu ant to the CLIA regul ation s and is used for clini edi purpo ses. Test Perfo rmed by Sancho Martínez, [facility], [address] [facility] [address] , [facility], [place] Arash Valle M.D., Ph.D. , [facility] atori es [phone], CLIA [id number] Lab test perfo rmed by: Lab Mnemo freida: [phone] [id number] , Not Available [facility] (Main Lab Location) [address] [place] [address] [address], [place], [address], 06/13/2024 13:34:08 08/10/20 22 08/07/2022 MAMMO , scree angelica, bilat eral, w/ CAD No observ ation record ed. [facility] [place] [address], [place], [address], 12/21/2022 13:15:13 09/25/19 24 09/23/2023 MAMMO , scree angelica, bilat eral, w/ CAD No observ ation record ed. [facility] Central Scheduling [address] [facility] [place], [address], 09/25/2023 15:36:12 Result Notes None recorded. Problems Name Problem SNOMED Code Status Onset Date Resolution Date Notes Provider Name and Address Organization Details Recorded Time Hypothyroidis m 40653985 Active 2021 Elisabeth Perea LPN null, [place] [facility] 09:20:36 Vitamin D deficiency 14067022 Active 2021 Elisabeth Perea LPN [place] [facility] 09:24:27 Hypercholeste rolemia 87602670 Active [address], [place], [address] , [place] [facility] 11:39:08 Rosacea 630439763 Active [address], [place], [address] , [place] - [facility] 2 11:39:25 Problem Notes None recorded. Procedures Surgical History Date Name Laterality Status Provider Name and Address Organization Details Recorded Time 3 Other completed MARBIN Mcconnell [place] - [facility] 09/08/2023 10:42:12 2 Date of Last Pap Smear completed ARGELIA Wen [facility] 04/16/2023 10:02:35 1 Most Recent Mammogram completed [facility] 01/21/2022 13:03:13 1 Date of Last Mammogram completed Elisabeth Perea LPN [facility] 05/14/2022 09:23:06 9 Date of Last Colonoscopy completed [facility] [place] [facility] 01/21/2022 13:03:20 Colonoscopy completed [facility] 01/21/2022 13:05:36 Endoscopy completed [facility] 01/21/2022 13:05:56 Imaging Results Imaging Date Name Status LastModified by Organiz ation Details LastModified Time 08/07/2022 MAMMO, screening, bilateral, w/ CAD completed [facility] [address], [place], [address], 12/21/2022 13:15:13 09/23/2023 MAMMO, screening, bilateral, w/ CAD completed [facility] Central Scheduling [address] [facility] [place], [address], 09/25/2023 15:36:12 Procedure Notes None recorded. Medical Equipment None Reported. Allergies No known drug allergies Medications Name Sig Start Date Stop Date Status Note LastModified by Organization Details LastModified Time levothyroxine 137 mcg tablet TAKE ONE TABLET BY MOUTH ONE TIME DAILY active Not Available Not Available No t Available hydrocodone 5 mg-acetaminop hen 325 mg tablet TAKE ONE TABLET BY MOUTH EVERY 4 TO 6 HOURS NEEDED 08/30 completed Not Available Not Available Not Available alclometasone 0.05 % topical cream APPLY TO ECZEMA TWO TIMES A DAY NEEDED FOR FLARES active Not Available Not Available No t Available levothyroxine 125 mcg tablet Take 1 tablet every day by oral route for 90 days. 2023 active Not Available Not Available Not Avai lable montelukast 10 mg tablet TAKE ONE TABLET BY MOUTH ONE TIME DAILY 05/13 completed Not Available Not Available Not Available fluocinonide 0.05 % topical cream APPLY TO FEET TWICE DAILY NEEDED FOR FLARES active Not Available Not Available No t Available ondansetron 4 mg disintegratin g tablet PLACE ONE TABLET ON THE TONGUE TWICE A DAY NEEDED 08/30 completed Not Available Not Available Not Available Vitamin D3 05/19 completed Not Available Not Available Not Available Calcium + D 05/19 completed Not Available Not Available Not Available Multiple Vitamin, Womens 05/19 completed Not Available Not Available Not Available magnesium glycinate 05/19 completed Not Available Not Available Not Available Flonase Sensimist 27.5 mcg/actuation nasal spray,suspens ion 1 spray every day by nasal route. 08/30 completed Not Available Not Available Not Available magnesium citrate 125 mg capsule 300 mg every day by oral route. 2019 active Not Available Not Available Not Avai lable Vitals Date Recorded Body weight Body mass index (BMI) Body height Body temperature Heart rate Oxygen saturation Oxygen saturation in Arterial blood by Pulse oximetry Systolic blood pressure Diastolic blood pressure Provider Name and Address Organization Details Last Updated DateTime 2 743702. 43 g 38.6 kg/m2 165.1 cm 97.9 [degF] 78 /min 98 % 98 % 130 mm[Hg] 81 mm[Hg] Adri Vargas [facility] 13:00:38 Date Recorded Body height Body mass index (BMI) Body weight Body temperature Heart rate Respiratory rate Oxygen saturation Oxygen saturation in Arterial blood by Pulse oximetry Systolic blood pressure Diastolic blood pressure Provider Name and Address Organization Details Last Updated DateTime 2 165.1 cm 37.9 kg/m2 246996. 06 g 99 [degF] 89 /min 18 /min 98 % 98 % 128 mm[Hg] 83 mm[Hg] Yuni Garcia CMA [facility] 11:00:06 Date Recorded Body height Body mass index (BMI) Body weight Body temperature Heart rate Respiratory rate Oxygen saturation Oxygen saturation in Arterial blood by Pulse oximetry Systolic blood pressure Diastolic blood pressure Provider Name and Address Organization Details Last Updated DateTime 3 165.1 cm 39.4 kg/m2 907077. 39 g 98.1 [degF] 72 /min 18 /min 98 % 98 % 141 mm[Hg] 87 mm[Hg] Susan Saldaña CMA [facility] 13:05:50 Date Recorded Body height Body mass index (BMI) Body weight Body temperature Heart rate Respiratory rate Oxygen saturation Oxygen saturation in Arterial blood by Pulse oximetry Systolic blood pressure Diastolic blood pressure Provider Name and Address Organization Details Last Updated DateTime 3 165.1 cm 37.7 kg/m2 207594. 98 g 97.6 [degF] 93 /min 16 /min 98 % 98 % 143 mm[Hg] 93 mm[Hg] MARBIN Mcconnell [facility] 3 10:40:12 Date Recorded Body height Body mass index (BMI) Body weight Heart rate Respiratory rate Oxygen saturation Oxygen saturation in Arterial blood by Pulse oximetry Systolic blood pressure Diastolic blood pressure Provider Name and Address Organization Details Last Updated DateTime 4 165.1 cm 38.8 kg/m2 109007. 72 g 91 /min 16 /min 98 % 98 % 139 mm[Hg] 82 mm[Hg] Claudia Coppola [facility] 4 12:28:47 Social History Question Answer Notes LastModified by Organizat ion Details LastModified Time Tobacco Smoking Status Never Smoker Adri desir [facility] 01/21/2022 13:04:53 Do You Have An Advance Directive? Yes Information not available 01/21/2022 What Is Your Level Of Alcohol Consumption? Occasional Information not available 01/21/2022 How Many Times Per Week Do You Consume Alcohol? 1-2 Times Per Week Information not available 09/03/2023 Do You Wear A Helmet When Biking? Yes Information not available 09/03/2023 Are You Blind Or Do You Have Difficulty Seeing? No Information not available 09/03/2023 Is Blood Transfusion Acceptable In An Emergency? Yes Information not available 05/14/2022 What Is Your Level Of Caffeine Consumption? Occasional Information not available 01/21/2022 How Much Tobacco Do You Chew? None [email or web address] Information not available 05/14/2022 Are You Currently Employed? No Information not available 05/14/2022 Are You Deaf Or Do You Have Serious Difficulty Hearing? No Information not available 09/03/2023 What Type Of Diet Are You Following? SPECIFIC [email or web address] Information not available 05/14/2022 Which Illicit Or Recreational Drugs Have You Used? None [email or web address] Information not available 05/14/2022 What Is The Highest Grade Or Level Of School You Have Completed Or The Highest Degree You Have Received? [id number] [email or web address] Information not available 05/14/2022 What Is Your Occupation? Retired [email or web address] Information not available 05/14/2022 Do You Have A Medical Power Of Manager Publishing? Yes Information not available 09/03/2023 What Was The Date Of Your Most Recent Tobacco Screening? 09/08/2023 [email or web address] Information not available 09/08/2023 How Many Children Do You Have? 0 [email or web address] Information not available 05/14/2022 What Is Your Relationship Status? Information not available 01/21/2022 Do You Use Your Seat Belt Or Car Seat Routinely? Yes Information not available 01/21/2022 Are You Sexually Active? No [email or web address] Information not available 05/14/2022 Do You Have Smoke And Carbon Monoxide Detectors In Your Home? Yes Information not available 09/03/2023 How Much Tobacco Do You Smoke? No [email or web address] Information not available 05/14/2022 Do You Feel Stressed (tense, Restless, Nervous, Or Anxious, Or Unable To Sleep At Night)? [id number] [email or web address] Information not available 12/21/2022 Do You Use Any Illicit Or Recreational Drugs? No Information not available 09/03/2023 Do You Use Sunscreen Routinely? No [email or web address] Information not available 05/14/2022 How Many Years Have You Smoked Tobacco? 0 [email or web address] Information not available 05/14/2022 Have You Recently Traveled Abroad? No Information not available 09/03/2023 Sex: Unknown Functional Status Question Answer Note LastModified by Organizat ion Details LastModified Time Do you have difficulty walking or climbing stairs? No Information not available 09/03/2023 Do you have difficulty doing errands alone? No Information not available 09/03/2023 Are you able to care for yourself? Yes Information not available 09/03/2023 Do you have difficulty dressing or bathing? No Information not available 09/03/2023 What is your exercise level? Occasional [email or web address] Information not available 05/14/2022 Mental Status Question Answer Note LastModified by Organization D etails LastModified Time Do you have difficulty concentrating, remembering or making decisions? No Information no t available 09/03/2023 Family History Nothing Reported Notes:Patient states that e doesn't really know Medical History Condition Response NERVE DISEASE N RHEUMATIC FEVER N STROKE N KIDNEY STONES N DIABETES N CHRONIC PAIN N RADIATION / CHEMOTHERAPY N COPD N CONGESTIVE HEART FAILURE N RHEUMATOID ARTHRITIS N HYPERTHYROIDISM N HYPOTHYROIDISM N CAROTID BLOCKAGE N SEIZURES N DEPRESSION (INCLUDING POST ) N BOWEL PROBLEMS N BACK / NECK PROBLEMS N HAVE YOU BEEN HOSPITALIZED OR SEEN IN [facility] IN THE PAST YEAR ? N MIGRAINES N THYROID DISEASE Y ATHEROSCLEROSIS N ULCERS N BREAST PROBLEMS N PROSTATE PROBLEMS N LUPUS N IBS N DIALYSIS N OTHER N HIV / AIDS N ADHD N GERD Y ANEURYSM N FIBROMYALGIA N OSTEOPOROSIS N URINARY/BLADDER/KIDNEY PROBLEMS N HERNIA N GI Disorder N HYPERCHOLESTEROLEMIA N ARTHRITIS N USE OF BLOOD THINNERS N HEADACHES N Denied Chronic Illness or Disease N SKIN PROBLEMS N EMPHYSEMA N CROHN'S DISEASE N PERIPHERAL VASCULAR DISEASE N HEARTBURN / REFLUX N Other (2) N DVT N HYPERLIPIDEMIA N CAD N PATIENT DENIES SIGNIFICANT PAST MEDICAL HISTORY N BLOOD CLOTS N HEPATITIS / LIVER DISEASE N ASTHMA N PULMONARY DISEASE N GOUT N SLEEP DISORDER N HERPES N DEMENTIA N ALLERGIES N VARICOSITIES N VASCULAR DISEASE N KIDNEY DISEASE N LUNG DISORDER N Other (1) N HYPERTENSION N CARDIAC ARRHYTHMIA N CANCER: SPECIFY N ANXIETY DISORDER N BLOOD TRANSFUSION N ANEMIA/BLOOD DISORDER N ATRIAL FIBRILLATION N PULMONARY EMBOLISM N BIPOLAR DISORDER N BRONCHITIS N HEART DISEASE N BRAIN TUMOR N OSTEOARTHRITIS N HEART ATTACK (IN) N TUBERCULOSIS N GLAUCOMA N Gynecological History Statement/Question Response Abnormal Pap N Physical Abuse N Date of Last Mammogram 06/10/2021 Sexual Abuse N Post Menopausal Bleeding N Most Recent Mammogram 06/10/2021 Breast Problems N If Post Menopausal, Age at Menopause 52 Date of Last Colonoscopy 07/21/2019 Urinary Incontinence N Sexually Active? N Date of Last Pap Smear 08/10/2022 Sexual Problems? N Hormone Replacement Therapy N Obstetrics History GPAL:G 0 P 0 0 0 0 Immunizations Vaccine Type Date Status Provider Name and Address Organization Details Recorded Time COVID-19, mRNA, LNP-S, PF, 30 mcg/0.3 mL dose 08/11/2021 completed Ban Moore CCMA [place] [facility] 09/08/2023 10:41:04 COVID-19, mRNA, LNP-S, PF, 30 mcg/0.3 mL dose 01/12/2021 completed Ban Moore CCMA [place] [facility] 09/08/2023 10:41:04 COVID-19, mRNA, LNP-S, PF, 30 mcg/0.3 mL dose 12/22/2020 completed Ban Moore CCMA [place] [facility] 09/08/2023 10:41:04 Influenza, split virus, quadrivalent, preservative 06/01/2021 completed Ban Moore CCMA [place] [facility] 09/08/2023 10:41:04 zoster, unspecified formulation 05/14/2020 completed Ban Moore CC[facility] [place] [facility] 09/08/2023 10:28:09 tetanus toxoid, unspecified formulation 06/20/2018 completed MARBIN Mcconnell [place] [facility] 09/08/2023 10:28:09 zoster, unspecified formulation 07/16/2020 completed Ban Moore CC[facility] [place] [facility] 09/08/2023 10:28:09 Influenza, MDCK, quadrivalent, PF 05/29/2020 completed Ban Moore CC[facility] [place] [facility] 09/08/2023 10:41:04 Influenza, MDCK, quadrivalent, PF 06/28/2021 completed Ban Moore CC[facility] [place] [facility] 09/08/2023 10:41:04 influenza, unspecified formulation 07/09/2023 completed Claudia Coppola karlee [facility] 01/14/2024 12:28:53 Influenza, split virus, quadrivalent, PF 07/01/2023 completed Claudia desir [facility] 01/14/2024 12:28:53 Past Encounters Encounter ID Performer Location Encounter Start Date Encounter Closed Date Diagnosis/Indication Diagnosis SNOMED-CT Code Diagnosis ICD10 Code [id number] Ashok Ruiz MD Andrea[facility] [address] [place] [address] 01/21/2022 12:21:30 01/21/2022 14:24:53 Obesity 747158861 E66.9 Seasonal a llergic rhinitis 169801479 J30.2 Dyspnea 139566890 R06.00 [id number] Ashok Ruiz MD Andrea[facility] [address] [place] [address] 05/19/2022 10:45:09 05/19/2022 12:05:08 Obesity 550013105 E66.9 Hypercholesterolemia 136 40432 E78.00 Rosacea 873913156 L71.9 Vitamin D deficiency 347 34302 E55.9 Hypothyroidism 06831239 E03.9 Adult heal th examination 908790140 Z00.00 [id number] Ashok Ruiz MD [facility] [address] [place] [address] 12/21/2022 12:56:30 12/21/2022 13:41:57 Hypothyroidism 62910429 E03.9 Obesity 992841488 E66.9 Vitamin D deficiency 347 49495 E55.9 [id number] Ashok Ruiz MD [facility] [address] [place] [address] 09/08/2023 10:18:31 09/08/2023 11:47:50 Hypercholesterolemia 32871356 E78.00 Rosacea 679580430 L71.9 Hypothyroidism 46032498 E03.9 Vitamin D deficiency 347 91151 E55.9 Adult heal th examination 690804155 Z00.00 [id number] Ashok Ruiz MD Andrea[facility] [address] [place] [address] 01/14/2024 11:36:04 01/14/2024 13:14:30 Obesity 807973738 E66.9 Vitamin D deficiency 347 05125 E55.9 Hypothyroidism 24035418 E03.9 Health Concerns Section Related Observation LastModified by Organization Detai ls LastModified Time None Recorded Concern Status LastModified by Organization Details LastModified Time None Recorded Advance Directives Directive Y: Payers Encounter Date Sequence Insurance Name Policy Number Policy Moreno Covered Member ID Moreno Member ID Guarantor Name 01/21/2022 1 [place]) 104 Irina Studencki [id number] Irina Studencki 05/19/2022 1 [place] 104 Irina Studencki [id number] Irina Studencki 12/21/2022 1 [place] 104 Irina Studencki [id number] Irina Studencki 09/08/2023 1 [place] 104 Irina Studencki [id number] Irina Studencki 01/14/2024 1 [place] 104 Irina Studencki [id number] Irina Studencki Notes Date Note Type Note Provider Name and Address Organization Details Recorded Time 2 text/html HPI Notes: 61 yowf who has shortness of breath that started probably about 3 weeks ago and seemingly was off and on for a while. However, 9 days ago it became much worse and she was evaluated in the emergency room and evaluation included a normal chest x-ray, fairly normal lab work including a normal TSH of 1.3, no fever although she did feel flushed. EKG done in the emergency department was normal. She is having significant nasal congestion at this point Ashok Ruiz MD [address], [place], [address], [facility] 01/21/2022 14:13:33 2 text/html HPI Notes: 62 yowf is here for wellness physical and general medical review. She has generally enjoyed excellent health although she does have some hypercholesterolemia, she is on treatment for hypothyroidism, and has vitamin D insufficiency. MD [address] [facility], [place], [address], [place] [employer] [facility] 05/19/2022 12:01:18 3 text/html HPI Notes: 62 yowf as here in follow-up for her thyroid. She has had hypothyroidism and has been on replacement. On her most recent lab work she had a low normal TSH but an elevated free T4. She also wanted to follow up on her vitamin D level at this time. MD [address] [facility], [place], [address], [place] [facility] [employer] [facility] 12/21/2022 13:22:08 3 text/html HPI Notes: 63 yowf who is here for wellness physical and general medical review. She has hypothyroidism, tendency toward vitamin D insufficiency, previous hypercholesterolemia that has not met criteria for treatment, and rosacea. MD [address] [facility], [place], [address], [place] [employer] 09/08/2023 11:47:12 4 text/html HPI Notes: 63 yowf here for follow-up of her hypothyroidism and also would like to discuss her vitamin D deficiency. She takes 5000 IUs vitamin D3 daily and wanted to get the level checked, but is still not available and will be ordered today. Otherwise, we are waiting for the reverse T3, but her other thyroid studies are available and MD [address] [facility], [place], [address], [place] [employer] [employer] [facility] 01/14/2024 13:11:34 OBGyn Episode No OBEpisode recorded.
--- OUTSIDE RECORDS SUMMARY | 2024-06-16 12:12 | XMS_ITS | Referral Summary ---
Author Organization [facility] Address [address] [facility] [place] [address]- Care Team Providers Care Insurance Salesperson Name Role Phone Aldo Chavez Primary Care Physician Encounter 01/12/22 - 01/12/22 [facility] [address] [place] [address]- Encounter Diagnosis Tachycardia(Discharge Diagnosis) - 01/12/22 Shortness of breath(Discharge Diagnosis) - 01/12/22 Discharge Disposition: 01-Home or Self Care Attending Physician: Beata Nuno Admitting Physician: Beata Nuno Vital Signs Most recent to oldest [Reference Range]: 1 Temperature Temporal Artery [36.3-37.8 d egC] 37.1 degC (01/12/22 2:48 PM) Temperature Temporal Artery (FAHRENHEIT) 98.8 degF (01/12/22 2:48 PM) Peripheral Pulse Rate [60-100 bpm] 92 bp m (01/12/22 7:46 PM) Heart Rate Monitored [60-100 bpm] 92 bpm (01/12/22 7:46 PM) Respiratory Rate [14-20 br/min] 15 br/mi n (01/12/22 7:46 PM) Blood Pressure [90-140/60-90 mmHg] 135/7 9mmHg (01/12/22 7:46 PM) Mean Arterial Pressure, Cuff 94 mmHg (01/12/22 7:46 PM) SpO2 100 % (01/12/22 7:46 PM) Problem List Condition Effective Dates Status Health Status Inform ant Adult hypothyroidism(Confirmed) Active patient Allergies, Adverse Reactions, Alerts No Known Medication Allergies Results Most recent to oldest [Reference Range]: 1 SARS-coV-2 [Negative] Negative (01/12/22 6:10 PM) WBC [4.0-11.0 x10^3/mcL] 11.0 x10^3/mcL (01/12/22 3:51 PM) RBC [3.69-5.17 x10^6/mcL] 4.93 x10^6/mcL (01/12/22 3:51 PM) PT [11.8-14.4 seconds] 13.6 seconds (01/12/22 3:51 PM) INR [1.00-2.00] 1.04 (01/12/22 3:51 PM) BUN [10-20 mg/dL] 22 mg/dL *HI* (01/12/22 3:51 PM) Troponin [0.010-0.013 ng/mL] <0.010 ng/m L (01/12/22 3:51 PM) Glucose Lvl [65-99 mg/dL] 94 mg/dL (01/12/22 3:51 PM) Potassium Lvl [3.5-5.1 mmol/L] 4.3 mmol/ L (01/12/22 3:51 PM) Baso Absolute [0.0-0.1 x10^3/mcL] 0.1 x1 0^3/mcL (01/12/22 3:51 PM) MCV [81.9-97.5 fL] 86.8 fL (01/12/22 3:51 PM) AST [5-34 Intl Units/L] 15 Intl Units/L (01/12/22 3:51 PM) ALT [11-55 Intl Units/L] 17 Intl Units/L (01/12/22 3:51 PM) MCHC [32.1-35.0 gm/dL] 34.0 gm/dL (01/12/22 3:51 PM) Osmolality [275-300 mOsm/kg] 281 mOsm/kg (01/12/22 3:51 PM) Sodium Lvl [136-145 mmol/L] 139 mmol/L (01/12/22 3:51 PM) Lymph Absolute [1.3-3.6 x10^3/mcL] 1.8 x 10^3/mcL (01/12/22 3:51 PM) Hct [33.6-45.8 %] 42.8 % (01/12/22 3:51 PM) PTT [21.6-34.5 seconds] 24.9 seconds (01/12/22 3:51 PM) Calcium Lvl [8.4-10.9 mg/dL] 10.0 mg/dL (01/12/22 3:51 PM) [place] Absolute [0.2-0.9 x10^3/mcL] 0.6 x1 0^3/mcL (01/12/22 3:51 PM) Albumin Lvl [3.5-5.0 gm/dL] 4.2 gm/dL (01/12/22 3:51 PM) Total Protein [6.4-8.3 gm/dL] 7.7 gm/dL (01/12/22 3:51 PM) MCH [26.8-33.7 pg] 29.5 pg (01/12/22 3:51 PM) Magnesium Lvl [1.6-2.6 mg/dL] 2.2 mg/dL (01/12/22 3:51 PM) Neutro Absolute [1.9-7.9 x10^3/mcL] 8.4 x10^3/mcL *HI* (01/12/22 3:51 PM) Bili Total [0.30-1.20 mg/dL] 0.46 mg/dL (01/12/22 3:51 PM) Hgb [11.2-15.4 gm/dL] 14.6 gm/dL (01/12/22 3:51 PM) Alk Phos [40-150 Intl Units/L] 92 Intl U nits/L (01/12/22 3:51 PM) MPV [6.8-10.2 fL] 9.7 fL (01/12/22 3:51 PM) Platelet [150-450 x10^3/mcL] 251 x10^3/m cL (01/12/22 3:51 PM) Chloride [98-107 mmol/L] 105 mmol/L (01/12/22 3:51 PM) D-Dimer [0.27-0.48 mcg/mL] 0.35 mcg/mL (01/12/22 6:28 PM) CO2 [22-29 mmol/L] 23 mmol/L (01/12/22 3:51 PM) AGAP [8.0-16.0 mmol/L] 11.0 mmol/L (01/12/22 3:51 PM) Eos Absolute [0.00-0.40 x10^3/mcL] 0.10 x10^3/mcL (01/12/22 3:51 PM) TSH [0.350-4.940 mcIU/mL] 1.336 mcIU/mL (01/12/22 3:51 PM) RDW [11.0-15.0 %] 13.8 % (01/12/22 3:51 PM) eGFR Non-AA [>=60 mL/min/1.7 3m2 ] 69 mL/min/1.73m2 (01/12/22 3:51 PM) eGFR AA [>=60 mL/min/1.73m2 ] 84 mL/min/1.73m2 (01/12/22 3:51 PM) BNP [10-100 pg/mL] 23 pg/mL (01/12/22 6:08 PM) AG Ratio [1.1-1.8] 1.2 (01/12/22 3:51 PM) Neutrophils [49.2-78.4 %] 76.4 % (01/12/22 3:51 PM) Lymphocytes [16.0-45.9 %] 16.5 % (01/12/22 3:51 PM) Monocytes [4.3-10.9 %] 5.4 % (01/12/22 3:51 PM) Eosinophils [0.5-7.2 %] 0.8 % (01/12/22 3:51 PM) Basophils [0.0-2.0 %] 0.9 % (01/12/22 3:51 PM) Creatinine Lvl [0.57-1.11 mg/dL] 0.84 mg /dL (01/12/22 3:51 PM) Bun/Creat Ratio [7-20] 26 *HI* (01/12/22 3:51 PM) Social History Social History Type Response Smoking Status Never (less than 100 in lifetime) entered on: 01/12/22 Functional Status FUNCTIONAL 01/12/22 Sensory Deficits Visual Impairment COGNITIVE 01/12/22 Level of Consciousness Alert Orientation Assessment Oriented x 4 Affect/Behavior Appropriate, Calm, Cooperative Neurological Symptoms None 01/12/22 Appearance [facility] Discharge Instructions Patient Education Shortness of Breath, Adult Sinus Tachycardia Follow Up Care 01/12/2022 15:08:09 With:Return to Emergency Department Address:Unknown When:1 to 2 days Comments:Return to ED if pain/symptoms increase With:Aldo Chavez Address: [address] [place] [address]???s [facility] [address], [address] [place] [address] Business (1) When:1 to 2 days
--- OUTSIDE RECORDS SUMMARY | 2024-06-16 12:12 | XMS_ITS | Patient Health Record ---
Author Organization [facility] Address [address] [place] [id number] Care Team Providers Care Secretary Of State Name Role Phone Louise KENT, Froilan Primary Care Provider [facility] chidi Arroyo MD, [place] Unavailable [phone] REASON FOR REFERRAL No Information MEDICATIONS Medication SIG (Take, Route, Frequency, Duration) Notes Start Date End Date Status Magnesium Citrate 100 mg Oral Active Multivitamin *please review f or potential update for e-prescription and drug interaction check* Active Magnesium Glycinate 100 mg *please review for potential update for e-prescription and drug interaction check* Active Calcium 600 + D(3) 600 mg(1,500mg)-200 unit *please review for potential update for e-prescription and drug interaction check* Active Levothyroxine Sodium 112 MCG Oral Active IMMUNIZATIONS Vaccine Route Administration Date Status Comme nts Hep B, unspecified formulati on (CPT 11965 Inactive) Unknown 07/31/2019 Pending Influenza vaccine, high dose seasonal Unknown 9 Pending SOCIAL HISTORY Sex Assigned At : Social History Observation Description Sex Assigned At Unknown PROBLEMS Problem Type ICD Code Onset Dates Problem Status W/U Status Risk SNOMED Code Notes Problem Rosacea (695.3) 10/10/19 Active confirmed Rosacea (228862841) --APPEND- -KB511--D osacea Problem Diarrhea (787.91) 10/10/19 Active confirmed Diarrhea (33794919) --APPEND- -DM162--C iarrhea Problem Diverticulosis (562.10) 10/10/19 Active confirmed Diverticular disease of colon (526168344) --APPEND- -RQ553--S iverticul osis Problem Abdominal pain (789.00) 10/23/20 19 Active confirmed Abdominal pain (42933207) --APPEND- -ZN695--R bdominal pain Problem Acid reflux (530.81) 10/10/19 20 Active confirmed Acid reflux (100826845) --APPEND- -LP586--F manuel reflux Problem Pain in throat (784.1) 07/12/20 19 Active confirmed Pain in throat (080020861) --APPEND- -IP521--T ain in throat PLAN OF TREATMENT No Information Insurance Providers Payer Name Payer Address Payer Phone Subscriber Number Group Number Insured Name Patient Relationship to Insured Coverage Start Date Coverage End Date BCBS PMD [address] [place] [phone] [id number] Irina Braga Self - patient is the insured 2017 MEDICAL (GENERAL) HISTORY Surgical History Surgery Date(Month/Year) No Prior Procedures
--- OUTSIDE RECORDS SUMMARY | 2024-06-16 12:12 | XMS_ITS | Continuity of Care Document ---
Author Organization [facility] Address [address] [facility] [address] [place] [id number] Phone Care Team Providers Care Architectural Intern Name Role Phone Chris KENT, Sadi Unavailable Unavailable Allergies, Adverse Reactions, Alerts Substance Reaction Status Criticality No Known Allergies Active No Inform ation Medications Medication Instructions Dosage Effective Dates (start - stop) Status Comments levothyroxine 125 mcg capsule take 1 capsule by oral route every day 125 MCG - Active CALCIUM (unknown strength) Not Available - Active MAGNESIUM (unknown strength) Not Available - Active VITAMIN D3 (unknown strength) Not Available - Active levothyroxine 13 mcg capsule take 1 capsule by oral route every day 13 MCG - No Longer Active Procedures Procedure Date REFRACTION OFFICE/OUTPATIENT VISIT, EST REFRACTION OFFICE/OUTPATIENT VISIT, EST REFRACTION CMPTR OPHTH IMG OPTIC NERVE OFFICE/OUTPATIENT VISIT, EST Advance Directives Directive Yes / No Effective Date File Name No Information Encounters Encounter Description Practice Location Reason(s) For Visit Diagnoses Date Provider Providers Copied on Encounter OFFICE/OUTPA TIENT VISIT, EST [facility], [address] [facility] [address], [place], [place], [id number], [place] tel: [phone] [facility] [place] COMPLETE EYE EXAM (chief complaint) Age-related nuclear cataract of both eyesKeratoconju nctivitis sicca, not specified as Sjogren's, bilateralMyopia of both eyes Chris Avitia. [address] [place] [address], [id number]. tel: [phone] Referring Provider: Sadi Perez , [address] [place] [address], [id number] . tel:[phone] OFFICE/OUTPA TIENT VISIT, EST [facility], [address] [place] [address], [id number], tel: [phone] [facility] Routine Eye Exam (chief complaint) Keratoconjuncti vitis sicca, not specified as Sjogren's, bilateralAge-re lated nuclear cataract, bilateralRefrac tive error 3 Chris Avitia. [address] [place] [address], [id number]. tel: [phone] Referring Provider: Sadi Perez , [address] [place] [address], [id number] . tel:[phone] OFFICE/OUTPA TIENT VISIT, EST [facility], [address] [place] [address], [id number], tel: [phone] [facility] DFE OU (chief complaint) Bilateral ocular hypertensionAge -related nuclear cataract of both eyesMyopia of both eyes 2 Chris Avitia. [address] [place] [address], [id number]. tel: [phone] Family History Family Member Type Diagnosis Age At Onset Parent Problem (finding) Age-Related Ma cular Degeneration (disorder) Parent Known absent glaucoma Immunizations Vaccine Date Status Comments Flu (split) (3 yrs or older) administered Source: Other Provider Flu (split) (3 yrs or older) administered Source: Other Provider Payers Payer name Insurance type Covered green party ID Authoriza tion(s) [facility] [id number] Social History Type Description Quantity Date Captured Comments Alcohol Use Details Unknown Caffeine Use Details Unknown Tobacco Use Status Current non-smoker Smoking Status Never smoker Non-Smoking Tobacco Use Details : No Details Available : No Details Available Sex Female Chief Complaint And Reason For Visit From encounter dated '12/27/2023 10:20'. COMPLETE EYE EXAM (chief complaint). Description: The 63 year old patient presents for evaluation of COMPLETE EYE EXAM in the right eye and left eye. PT STATES NO CHANGES IN [place] SINCE LAST EYE EXAM. BOTH EYES DRY INTERMITTENTLY. SOME RELIEF WITH CELLUVISC PRN OUFLOATERS , NO WORSE SINCE LAST EYE EXAM Reason For Referral Reason For Referral No Information Plan Of Treatment Date Type Action Status Appointment Irina Braga BOOKED History Of Present Illness Encounter Date Complaint History Of Prese nt Illness COMPLETE EYE EXAM The 63 year ol d patient presents for evaluation of COMPLETE EYE EXAM in the right eye and left eye. PT STATES NO CHANGES IN VA SINCE LAST EYE EXAM. BOTH EYES DRY INTERMITTENTLY. SOME RELIEF WITH CELLUVISC PRN OUFLOATERS , NO WORSE SINCE LAST EYE EXAM Routine Eye Exam The 62 year old patient presents for evaluation of Routine Eye Exam in the right eye and left eye. Patient wonders if ocular rosacea is still present OU. Patient stated no changes. Patient stated functioning well with current progressive glasses but denies eye pain. Patient noted a hx of dryness of eyes OU.Warm compresses as neededPres free tears as neededEyelid scrubs as needed DFE OU The 61 year old female presents for evaluation of DFE OU. Patient has no vision complaints OU since last visit. Patient complains of itching OU bur OD is worse. Patient states itchiness OD in the bottom right corner on and off. Patient states that when she uses hot compress to help. Patient uses artifical tears as needed. Denies pain. Functional Status Date Functional Assessmen t No Information Instructions Date Instruction Additional Infor tab Impression/Plan Related to Age-r elated nuclear cataract of both eyes Impression/Plan Related to Myopi a of both eyes Impression/Plan Related to Kerat oconjunctivitis sicca, not specified as Sjogren's, bilateral Impression/Plan Related to Kerat oconjunctivitis sicca, not specified as Sjogren's, bilateral Impression/Plan Related to Age-r elated nuclear cataract, bilateral Impression/Plan Related to Refra ctive error Impression/Plan - No treatment currently recommended. The patient will monitor vision changes and contact us with any decrease in vision. Related to Age-related nuclear cataract of both eyes Impression/Plan - stable Related to Bilateral ocular hypertension Follow up - RTC 1 year Complete Impression/Plan - Di spense glasses Rx Related to Myopia of both eyes Assessments Type Assessment Date assessment Age-related nuclear cataract of both eyes assessment Keratoconjunctivitis sicca, not specified as Sjogren's, bilateral assessment Myopia of both eyes impression Myopia of both eyes: H52.13 impression Keratoconjunctivitis sicca, not specified as Sjogren's, bilateral: H16.223 impression Age-related nuclear cataract of both eyes: H25.13 Patient Care Teams Name Effective Dates (start - stop) Status Members No Information
--- OUTSIDE RECORDS SUMMARY | 2024-06-16 12:12 | XMS_ITS | Referral Summary ---
Author Organization [facility] Address [address] [facility] [place] [address]- Care Team Providers Care Price Clerk Name Role Phone Froilan Gil Primary Care Physician Encounter 05/05/23 - 05/05/23 [facility] [address] [place] [address]- Encounter Diagnosis Deviated nasal septum(Final) - Other specified respiratory disorders(Final) - Hypertrophy of nasal turbinates(Final) - Hypothyroidism, unspecified(Final) - Discharge Disposition: 01-Home or Self Care Attending Physician: Isaiah Benítez MD Admitting Physician: Isaiah Benítez MD Problem List Condition Confirmation Course Effective Dates Status H ealth Status Informant Adult hypothyroidism Confirmed Active p atient Allergies, Adverse Reactions, Alerts No Known Medication Allergies Social History Social History Type Response Smoking Status Never (less than 100 in lifetime) entered on: 01/12/22
--- OUTSIDE RECORDS SUMMARY | 2024-06-16 12:12 | XMS_ITS | Referral Summary ---
Author Organization [facility] Address [address] [facility] [place] [address]- Care Team Providers Care Line Builder Name Role Phone Aldo Chavez Primary Care Physician Encounter 08/03/19 - 08/03/19 [facility] [address] [place] [address]- Discharge Disposition: 01-Home or Self Care Attending Physician: Aldo Chavez MD Social History Social History Type Response
== END 2024-06-16 12:08 | disposition home or self-care (01) ==
LOC: LBN 12:07
PROVIDERS: Visit Provider Nurse Practitioner Family
DX: J02.9 Acute pharyngitis, unspecified (principal)
CPT/HCPCS: 87070